=== PATIENT | female | born 1980 | race Caucasian/White ===

== ENCOUNTER 2017-02-03 17:07 | Observation (INO) | payer SELFPAY ==
[~2017-02-03] VITALS: Ht 157.5 cm; Wt 102.5 kg
[2017-02-03] MEDS ORDERED: LACTATED RINGERS 1,000 ML IV SCH (17:45)
[2017-02-03 17:47] LABS: CLARITY URINE CLEAR (CLEAR); COLOR URINE YELLOW (YELLOW); GLUCOSE URINE NEGATIVE (NEGATIVE); KETONES URINE 4+ (NEGATIVE); LEUKOCYTE ESTERASE URINE TRACE (NEGATIVE); NITRITE URINE POSITIVE (NEGATIVE); OCCULT BLOOD URINE TRACE (NEGATIVE); PROTEIN URINE NEGATIVE (NEGATIVE); SPECIFIC GRAVITY URINE 1.021 (1.005-1.030); UROBILINOGEN URINE 0.2 E.U./dL (0.2-1.0)
[2017-02-03] MEDS ORDERED: CEFAZOLIN 2,000 MG in DEXT 5% WATER 100 ML IV NR (18:00)
[2017-02-03] MEDS ORDERED: PREN1TAB78 PO (18:08)
== END 2017-02-03 18:40 | disposition home or self-care (01) ==
LOC: L&D 17:07
PROVIDERS: ADMIT Obstetrics & Gynecology; ATTEND Obstetrics & Gynecology
DX: O26.893 Other specified pregnancy related conditions, third trimester (principal); R10.31 Right lower quadrant pain; Z3A.36 36 weeks gestation of pregnancy; R35.0 Frequency of micturition
CPT/HCPCS: 81001; 96365; 99281; G0378; J0690; J7120; J7060